=== PATIENT | female | born 1990 | race Caucasian/White ===

== ENCOUNTER 2019-12-11 01:01 | Emergency (ER) | payer BC ==
--- NOTE | 2019-12-11 01:59 | RADIOLOGY REPORT (SQ) ---
EXAM DESCRIPTION: X-ray, two views of the right forearm CLINICAL HISTORY: 29 years Female, r/o foreign object ( window pane glass) COMPARISON: None. FINDINGS: Soft tissue injury is identified involving the volar aspect of the proximal forearm. A dressing is in place. There is subtle irregularity of the soft tissues at the area of laceration no definitive radiopaque foreign body is identified. No fracture. IMPRESSION: Soft tissue injury. Irregularity of the soft tissues. No obvious radiopaque foreign body.
[2019-12-11] MEDS ORDERED: LIDOCAINE 1%/EPINEPHRINE INJ 20 ML VIAL INJ ONE (03:31)
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
[2019-12-11] MEDS ORDERED: ONDANSETRON 4 MG TAB.RAPDIS PO ONE (03:55)
[2019-12-11 05:45] VITALS: BP 122/80
== END 2019-12-11 05:45 | disposition home or self-care (01) ==
LOC: ER 01:01
DX: S51.811A Laceration without foreign body of right forearm, initial encounter (principal); W25.XXXA Contact with sharp glass, initial encounter; Y93.89 Activity, other specified; Y92.009 Unspecified place in unspecified non-institutional (private) residence as the place of occurrence of the external cause; F17.200 Nicotine dependence, unspecified, uncomplicated; F12.10 Cannabis abuse, uncomplicated; L08.9 Local infection of the skin and subcutaneous tissue, unspecified; T23.021A Burn of unspecified degree of single right finger (nail) except thumb, initial encounter; X19.XXXA Contact with other heat and hot substances, initial encounter
CPT/HCPCS: 99283; 73090; 12032; S0119; J3490

== ENCOUNTER 2020-03-10 19:00 | Emergency (ER) | payer OTHER ==
[2020-03-10] MEDS ORDERED: PROCHLORPERAZINE EDISYLATE INJ 10 MG/2 ML VIAL IV ONE (20:48)
[2020-03-10] MEDS ORDERED: KETOROLAC TROMETHAMINE INJ/PF 30 MG/1 ML SDV IV ONE (20:49)
[2020-03-10] MEDS ORDERED: ACETAMINOPHEN 325 MG TABLET PO ONE (20:49)
--- NOTE | 2020-03-10 21:04 | ER Document Report ---
ED General - General Chief Complaint: Headache >24 hrs old Stated Complaint: FEVER,HEADACHE Notes: 29-year-old female no significant past medical history presents with a pproximately 3 days of gradual onset gradually worsening intermittent bilateral frontal headache exacerbated by leaning forward and other rapid changes in position associated with fever. Patient says that she has been going to dinner with her soon-to-be roommate and her son both of whom have confirmed coronavirus infection 3 weeks ago and were just cleared from quarantine and she has frequently gone to their house during this time. Patient reports previous dental pain few weeks ago but this is resolved. Patient denies any change in vision/speech/gait, weakness or numbness, vomiting, seizure, confusion, neck pain or stiffness, diabetes, HIV (monogamous with her fianc and last tested negative approximately 4-1/2 months ago), immunocompromise, facial pain, throat pain, throat or nasal discharge, chest pain, shortness of breath, cough, myalgia, abdominal pain, rash, recent illness or hospitalization, family history, drug use, anticoagulation or bleeding diatheses, trauma Past Medical History - General Information source: Patient - Social History Smoking Status: Current Every Day Smoker Chew tobacco use (# tins/day): No Frequency of alcohol use: Heavy Drug Abuse: None Family History: Reviewed & Not Pertinent Patient has homicidal ideation: No - Immunizations Immunizations up to date: Yes Hx Diphtheria, Pertussis, Tetanus Vaccination: Yes Review of Systems - Review of Systems Notes: REVIEW OF SYSTEMS: CONSTITUTIONAL : + fever, chills, or sweats. EENT: Denies recent cold symptoms, denies throat pain CARDIOVASCULAR: Denies chest pain, VJ RESPIRATORY: Denies cough, denies shortness of breath. GASTROINTESTINAL: Denies abdominal pain, nausea/vomiting. GENITOURINARY: Denies difficulty urinating, painful urination. FEMALE GENITOURINARY: Denies abnormal vaginal bleeding, vaginal discharge. MUSCULOSKELETAL: Denies neck pain, back pain. SKIN: Denies rash or skin lesions. HEMATOLOGIC : Denies easy bruising or bleeding. LYMPHATIC: Denies swollen, enlarged glands. NEUROLOGICAL: + headache, denies change in gait. PSYCHIATRIC: Denies anxiety or stress or depression. Physical Exam - Vital signs Vitals: Temp 100.8 F H 03/10/20 19:00 - Notes Notes: PHYSICAL EXAMINATION: GENERAL: Very well-appearing, well-nourished talkative pleasant young adult female sitting up in stretcher with no visible signs of discomfort and in no acute distress HEAD: Atraumatic, normocephalic, no tenderness to percussion of sinuses EYES: Pupils equal round and appropriate constriction, sclera anicteric, conjunctiva are normal. ENT: nares patent, moist mucous membranes, normal oropharynx NECK: Normal range of motion, supple without lymphadenopathy LUNGS: Breath sounds clear to auscultation bilaterally and equal. No wheezes rales or rhonchi. HEART: Regular rate and rhythm without murmurs ABDOMEN: Soft, nontender, no guarding, no masses, no CVAT EXTREMITIES: Normal range of motion, no pitting or edema. No cyanosis. NEUROLOGICAL: Awake, alert, conversing appropriately, moves all extremities spontaneously, cranial nerves II through XII intact bilaterally, normal [id number] bilaterally, 5/5 strength in all extremities, normal sensation in all extremities PSYCH: Normal mood, normal affect. SKIN: Warm, Dry, normal turgor, no rashes or lesions noted. Course - Re-evaluation Re-evalutation: 03/10/20 21:02 Very well-appearing patient with positional headache associated with fever that has been intermittent. No red flags on headache history, no neuro symptoms and no neuro deficits on exam, previously had dental pain but this is resolved and no signs of contiguous spread, brain abscess, or cavernous sinus thrombosis. Presentation not consistent with meningitis. Headache likely secondary to dehydration from insensible losses from fever likely secondary to COVID-19 infection. Patient with significant COVID-19 exposure. Patient is taken no analgesia for his symptoms and patient endorses having a history of migraines with very similar presentation but says they usually last 2 days so when this headache lasted 3 days she came to the ED. We will send COVID swab, obtain basic labs hCG and give hydration and analgesia and reassess. If patient has no improvement in symptoms will reevaluate need for neuroimaging but none is indicated at this time. The patient was evaluated during the global COVID-19 pandemic and that diagnosis was suspected/considered upon their initial presentation. Their evaluation, treatment and testing was consistent with current guidelines for patients who present with complaints or symptoms that may be related to COVID-19. 03/11/20 00:08 Patient feels completely improved after interventions. Since she has no headache anymore and is able to move head all around without any return of symptoms. Agrees that she was likely dehydrated. Spoke to patient about improving p.o. liquid intake and about insensible losses with fever. Discussed mild hyponatremia and hypokalemia and importance of taking in fluids with electrolytes. Also discussed likely COVID-19 diagnosis and need to quarantine. If patient extensive return to ED precautions for signs of other infections or worsening infections or worsening headache that would require return and she dem onstrated understanding of these precautions. Patient ready for discharge. - Vital Signs Vital signs: Temp Pulse Resp BP Pulse Ox 98.5 F 81 14 117/63 99 03/10/20 23:09 03/10/20 23:09 03/10/20 20:03 03/10/20 23:09 03/10/20 23:09 - Laboratory Result Diagrams: 03/10/20 20:20 03/10/20 20:20 Laboratory results interpreted by me: 03/10/20 03/10/20 20:20 20:20 RDW 16.6 H Monocytes % (Manual) 14 H Sodium 133.3 L Potassium 3.5 L Glucose 112 H Discharge - Discharge Clinical Impression: Hyponatremia, Hypokalemia, Dehydration Fever Qualifiers: Fever type: unspecified Qualified Code(s): R50.9 - Fever, unspecified Headache Qualifiers: Headache type: unspecified Headache chronicity pattern: episodic headache Intractability: not intractable Qualified Code(s): R51 - Headache Disposition: HOME, SELF-CARE Additional Instructions: Headache Most headaches are due to emotional stress, with resultant muscle tension (tension headache). Occasionally, headaches are secondary to changes in the blood vessels of the scalp (vascular headache and migraine headache). Sometimes, a headache is the first symptom of another developing illness, such as a viral infection. You have no evidence of stroke, bleeding, meningitis, or other serious cause of your headache. The treatment of headaches varies with the severity and cause of the pain. Not all headaches need pain shots. In fact, there is evidence that using narcotics for headaches may make them worse in the long run. The physician will determine the therapy that's in your best interest. If you develop a fever, if the headache is different from any you've previously experienced, or if the headache progressively worsens, then call your physician at once or go to the emergency room. Dehydration Dehydration can result from vomiting or diarrhea, fever, or decreased intake of fluids. If severe, hospitalization and intravenous fluids may be required. Most cases are treated at home with fluids by mouth. For the next 24 hours, drink lots of clear fluids. In mild cases, this can be soda pop or sports drinks. For more severe dehydration, the doctor may recommend special fluids such as Pedialyte or Lytren. Try to get three liters (3 quarts) of fluid per day. If vomiting occurs, continue to drink the fluids frequently (every 15 to 20 minutes), but in small amounts (one or two ounces). Depending on the type of dehydration, the doctor may prescribe antinausea medicine or potassium replacements. Call the doctor or return for re-examination if you become progressively weak, vomit repeatedly, or have other new symptoms. Hyponatremia You have an abnormally low level of serum sodium, called hyponatremia. Low serum sodium may cause weakness, fatigue, confusion, or even seizures. Usually, low sodium is due to taking diuretics (water pills), combined with drinking too much water. It can also be due to excessive vomiting or diarrhea. If no obvious cause is evident, further evaluation will be necessary. If the hyponatremia results from taking diuretics, it's treated by restricting the amount of water you can drink. If it's due to vomiting and diarrhea, it's treated by drinking liberal amounts of rehydration solution (for example Lytren or Pedialyte). A follow-up blood test is often done to see that the sodium is returning to normal. Call the physician if you have severe weakness, muscle twitching or cramping, palpitations (pounding or irregular heartbeat), confusion, headache, s eizures, or any other new or alarming symptoms. Patient was provided with discharge information including: As a person under investigation for Covid 19, the [place] department of Health and Human Services, division of public health advises you to adhere to the following guidance until your test results are reported to you. If your test result is positive, you will receive additional information from your provider and your local health department at that time. Remain at home until you are cleared by the health provider or public health authorities. Keep a log of visitors to your home, notify any visitors to your home of your isolation status. If you plan to move to a new address or leave the county, notify the local health department in your County. Call your doctor or seek care if you have an urgent medical need. Before seeking medical care, call ahead to get instructions from the provider before arriving at the medical office clinic or hospital. Notify them that you are being tested for the virus that causes Covid 19 so that arrangements can be made, as necessary, to prevent transmission to others in the healthcare setting. Next, notify the local health department in your county. If a medical emergency arises and you need to call 911, inform the first res ponders that you are being tested for the virus that causes Covid 19. Next, notify the local health department in your county. Follow-up with your primary doctor within 1 week. If you have any worsening pain, neck pain or stiffness, vomiting, change in high speaker you walk or how you talk, weakness or numbness, confusion, difficulty breathing, rash, fainting, dizziness, or any other worsening or alarming symptoms return to the emergency department immediately.
[2020-03-10] MEDS: NORMAL SALINE 1000 ML 1,000 ML IV PRN ×2 (21:07→22:12)
[2020-03-10 21:10] LABS: HEMATOCRIT 38.5 % (36.0-47.0); HEMOGLOBIN 13.1 g/dL (12.0-15.5); MEAN CORPUSCULAR HEMOGLOBIN 29.1 pg (27.0-33.4); MEAN CORPUSCULAR VOLUME 86 fl (80-97); PLATELET COUNT 231 10^3/uL (150-450); RED BLOOD COUNT 4.49 10^6/uL (3.72-5.28); RED CELL DISTRIBUTION WIDTH 16.6 % (11.5-14.0); WHITE BLOOD COUNT 9.9 10^3/uL (4.0-10.5)
[2020-03-10 21:12] LABS: ALBUMIN 3.9 g/dL (3.5-5.0); ALKALINE PHOSPHATASE 74 U/L (38-126); ANION GAP 8 (5-19); ASPARTATE AMINO TRANSFERASE 18 U/L (14-36); BILIRUBIN,DIRECT 0.4 mg/dL (0.0-0.4); BILIRUBIN,TOTAL 0.9 mg/dL (0.2-1.3); BLOOD UREA NITROGEN 7 mg/dL (7-20); CARBON DIOXIDE 27 mmol/L (22-30); CHLORIDE 98 mmol/L (98-107); GLUCOSE 112 mg/dL (75-110); POTASSIUM 3.5 mmol/L (3.6-5.0); TOTAL PROTEIN 7.1 g/dL (6.3-8.2)
[2020-03-10 21:48] LABS: ABSOLUTE LYMPHOCYTES# (MANUAL) 1.5 10^3/uL (0.5-4.7); ABSOLUTE MONOCYTES # (MANUAL) 1.4 10^3/uL (0.1-1.4); BAND NEUTROPHILS % (MANUAL) 5 % (3-5); BASOPHILS % (MANUAL) 0 % (0-2); EOSINOPHILS % (MANUAL) 2 % (0-6); LYMPHOCYTES % (MANUAL) 15 % (13-45); MONOCYTES % (MANUAL) 14 % (3-13); SEGMENTED NEUTROPHILS % (MAN) 64 % (42-78); TOTAL CELLS COUNTED 100
[2020-03-10 21:49] LABS: ANISOCYTOSIS 1+; POIKILOCYTOSIS SLIGHT; TOXIC GRANULATION 1+; TOXIC VACUOLATION PRESENT
[2020-03-10 21:50] LABS: OVALOCYTES SLIGHT; PLATELET COMMENT ADEQUATE; SCHISTOCYTES SLIGHT; TEAR DROP CELLS SLIGHT
--- NOTE | 2020-03-10 21:51 | RADIOLOGY REPORT (SQ) ---
EXAM DESCRIPTION: X-ray, single view of the chest CLINICAL HISTORY: 29 years Female, fever COMPARISON: None. FINDINGS: Lungs: Lungs are clear. No pneumonia or edema. No pneumothorax or pleural effusion. Mediastinum: Cardiac and mediastinal silhouette are normal. Bones: Osseous structures are normal. IMPRESSION: Unremarkable single view of the chest. No acute process.
[2020-03-11 00:57] VITALS: BP 112/69
== END 2020-03-11 01:14 | disposition home or self-care (01) ==
LOC: ER 19:00
DX: R51 Headache (principal); R50.9 Fever, unspecified; E87.6 Hypokalemia; E87.1 Hypo-osmolality and hyponatremia; E86.0 Dehydration; F17.200 Nicotine dependence, unspecified, uncomplicated; Z86.69 Personal history of other diseases of the nervous system and sense organs; Z20.828 Contact with and (suspected) exposure to other viral communicable diseases
CPT/HCPCS: 99284; 96361; 96374; 96375; 36415; 83605; 84703; 85025; 87635; 80053; 71045; J1885; J0780; J7030; C9803

== ENCOUNTER 2020-04-08 09:27 | Emergency (ER) | payer OTHER ==
[2020-04-08 09:41] VITALS: BP 122/79
--- NOTE | 2020-04-08 11:39 | ER Document Report ---
Entered by NARENDRA RODRIGUEZ SCRIBE 04/08/20 1116 Acting as scribe for:IVETTE ALVARENGA MD ED ENT - General Chief Complaint: Sore Throat Stated Complaint: THROAT SWELLING Time Seen by Provider: 04/08/20 11:05 Mode of Arrival: Ambulatory Information source: Patient Notes: This 29 year old female patient presents to the emergency department today with complaints of a 5 day history of a sore throat. Patient states that she "thinks she has strep". Patient denies fevers, cough, or sick contacts. - Related Data Allergies/Adverse Reactions: No Known Allergies Allergy (Verified 04/08/20 10:32) Past Medical History - General Information source: Patient - Social History Smoking Status: Current Every Day Smoker Cigarette use (# per day): Yes - / ppd Frequency of alcohol use: None Drug Abuse: None Occupation: unemployed Lives with: Family Family History: Reviewed & Not Pertinent - Medical History Medical History: Negative Surgical Hx: Negative - Immunizations Immunizations up to date: Yes Hx Diphtheria, Pertussis, Tetanus Vaccination: Yes Review of Systems - Review of Systems Constitutional: denies: Fever EENT: See HPI, Throat pain Cardiovascular: No symptoms reported Respiratory: denies: Cough Gastrointestinal: No symptoms reported Genitourinary: No symptoms reported Female Genitourinary: No symptoms reported Musculoskeletal: No symptoms reported Skin: No symptoms reported Hematologic/Lymphatic: No symptoms reported Neurological/Psychological: No symptoms reported -: Yes All other systems reviewed and negative Physical Exam - Vital signs Vitals: Temp Pulse Resp BP Pulse Ox 98.8 F 90 16 122/79 99 04/08/20 09:39 04/08/20 09:39 04/08/20 09:39 04/08/20 09:39 04/08/20 09:39 - Notes Notes: Physical Exam: General: Alert, appears well. HEENT: Normocephalic. Atraumatic. PERRL. Extraocular movements intact. Mild posterior oropharynx erythema and swelling, airway is patent, tissue is red/yellow like a flame, therd is mild uvula edema, right tonsil has a small white pustule. TMs are clear and non-bulging bilaterally. Neck: Supple. Non-tender. Respiratory: No respiratory distress. Clear and equal breath sounds bilaterally. Cardiovascular: Regular rate and rhythm. Abdominal: Normal Inspection. Non-tender. No distension. Normal Bowel Sounds. Back: No gross abnormalities. Extremities: Moves all four extremities. Upper extremities: Normal inspection. Normal ROM. Lower extremities: Normal inspection. No edema. Normal ROM. Neurological: Normal cognition. AAOx4. Normal speech. Psychological: Normal affect. Normal Mood. Skin: Warm. Dry. Normal color. Course - Re-evaluation Re-evalutation: 04/08/20 13:30 Rapid strep is negative. Patient does have some viral upper respiratory symptoms in addition to the sore throat. - Vital Signs Vital signs: Temp Pulse Resp BP Pulse Ox 98.8 F 90 16 122/79 99 04/08/20 09:39 04/08/20 09:39 04/08/20 09:39 04/08/20 09:39 04/08/20 09:39 Discharge - Discharge Clinical Impression: Sore throat Disposition: HOME, SELF-CARE Additional Instructions: Sore Throat: Sore throats may be caused by viruses, bacteria, or fungi. Most are due to a virus, and must get better on their own. Bacterial sore throats, particularly those due to "strep," need treatment with antibiotics. If an antibiotic is prescribed, be sure to take the medication for a full 10 days. Failure to take the antibiotic can result in complications such as rheumatic fever. Sometimes, an injection of antibiotics is given instead of pills or liquid. This single "shot" is equal in effectiveness to the oral medication. To relieve symptoms, take acetaminophen for pain. Sip clear liquids frequently, or eat popsicles or ice chips. Anesthetic sprays or lozenges may help. Make sure the air in the room is not too dry. Avoid using decongestants or antihistamines. Call the doctor if there is no improvement in two days, or if you have difficulty breathing, increasing throat pain, high fever, rash, or frequent vomiting. Take ibuprofen 400 mg every 6 hours for inflammation pain. You may also take Tylenol for pain. Start taking the prednisone tomorrow as prescribed--you received today's dose here in the emergency room. Drink plenty of fluids and get plenty of rest. Gargle warm salt water. Follow-up with a local medical doctor if not improving. RETURN TO THE EMERGENCY ROOM IF ANY NEW OR WORSENING SYMPTOMS. Prescriptions: Prednisone 10 mg PO Q8 #10 tablet I personally performed the services described in the documentation, reviewed and edited the documentation which was dictated to the scribe in my presence, and it accurately records my words and actions.
[2020-04-08] MEDS ORDERED: PREDNISOLONE SOD PHOS 15 MG/5 ML ORAL SYRING PO ONE (13:29)
[2020-04-08] MEDS ORDERED: IBUPROFEN SUSP 100 MG/5 ML ORAL SYRINGE PO ONE (13:29)
== END 2020-04-08 13:45 | disposition home or self-care (01) ==
LOC: ER 09:27
DX: J02.9 Acute pharyngitis, unspecified (principal); F17.210 Nicotine dependence, cigarettes, uncomplicated
CPT/HCPCS: 99283; 87070; 87880; J7510